=== PATIENT | female | born 1965 | race Caucasian/White ===

== ENCOUNTER → 2016-07-23 | Outpatient (CLI) | payer BC ==
--- NOTE | 2016-07-23 08:48 | US ---
EXAMINATION TYPE: US gallbladder DATE OF EXAM: 07/23/2016 8:22 AM COMPARISON: CT cap November 25, 2014. CLINICAL HISTORY: R10.9 ABD PAIN. Abd pain for weeks with N/V EXAM MEASUREMENTS: Liver Length: 13.6 cm Gallbladder Wall: 0.2 cm CBD: 0.7 cm Right Kidney: 9.4 x 4.2 x 4.3 cm Pancreas: wnl Liver: wnl Gallbladder: wnl Evidence for sonographic Choi's sign: no CBD: wnl Right Kidney: 1.3cm mixed superior pole cyst Technologist david 1.3 cm oval anechoic lesion felt to reflect a thin septated cyst or Bosniak type I I lesion upper pole level right kidney. Lesion not clearly seen on prior CT may be new. IMPRESSION: No gallstones or ultrasound evidence for acute cholecystitis.
--- NOTE | 2016-07-23 13:47 | XR ---
Abdomen HISTORY: Pain and constipation Frontal view of the abdomen on 2 images No comparisons Probable vascular calcifications are present within the pelvis, evidence of old granulomatous disease is suspected with left hilar calcifications. Lung bases are clear. No bowel obstruction or pneumoper itoneum is evident. There is mild spinal curvature, degenerative disc changes are present in the visu alized spine. IMPRESSION: No abnormality evident to account for patient's symptoms.
== END | disposition home or self-care (01) ==
LOC: RADUSWWP 08:01
PROVIDERS: ATTEND Family Medicine
DX: R10.9 Unspecified abdominal pain (principal); K59.00 Constipation, unspecified
CPT/HCPCS: 74000; 76705

== ENCOUNTER → 2016-08-20 | Outpatient (CLI) | payer BC ==
--- NOTE | 2016-08-20 10:58 | NM ---
EXAMINATION TYPE: NM hepatobiliary w EF DATE OF EXAM: 08/20/2016 9:17 AM COMPARISON: Ultrasound gallbladder 23 July 2016 HISTORY: Right upper quadrant pain TECHNIQUE: After the intravenous administration of 5.1 mCi Tc 99m Mebrofenin hepatobiliary scintigrap hy is performed. Immediate images post injection. FINDINGS: There is satisfactory initial accumulation of tracer by the liver. The gallbladder is visualized wit hin 20 minutes. The small bowel activity is noted within 10 minutes. At one hour 8 ounces of oral e nsure plus is given to mimic CCK and gallbladder ejection fraction is calculated at 84 %. Therefore t here is no scintigraphic evidence of cystic or common bile duct obstruction to suggest acute cholecys titis or gallbladder dyskinesia. IMPRESSION: Gallbladder ejection fraction 84%
== END | disposition home or self-care (01) ==
LOC: RADNMMAIN 07:08
PROVIDERS: ATTEND Family Medicine
DX: R10.11 Right upper quadrant pain (principal)
CPT/HCPCS: 78226; A9537

== ENCOUNTER → 2017-10-10 | Outpatient (CLI) | payer BC ==
[2017-10-10 11:55] LABS: Basophils # (A) 0.1 k/uL (0-0.2); Basophils % (A) 1 %; Eosinophils # (A) 0.1 k/uL (0-0.7); Eosinophils % (A) 1 %; HCT 43.8 % (34.0-46.0); HGB 13.8 gm/dL (11.4-16.0); Lymphocytes # (A) 1.7 k/uL (1.0-4.8); Lymphocytes % (A) 21 %; MCH 31.4 pg (25.0-35.0); MCHC 31.4 g/dL (31.0-37.0); MCV 100.2 fL (80.0-100.0); Mean Platelet Volume 7.1; Monocytes # (A) 0.4 k/uL (0-1.0); Monocytes % (A) 5 %; Neutrophils # (A) 5.9 k/uL (1.3-7.7); Neutrophils % (A) 70 %; Platelet Count 365 k/uL (150-450); RBC 4.38 m/uL (3.80-5.40); RDW 13.6 % (11.5-15.5); WBC 8.4 k/uL (3.8-10.6)
[2017-10-10 12:15] LABS: ALT 34 U/L (9-52); AST 24 U/L (14-36); Albumin 4.4 g/dL (3.5-5.0); Alkaline Phosphatase 99 U/L (38-126); Anion Gap 8 mmol/L; Blood Urea Nitrogen 15 mg/dL (7-17); Calcium 9.7 mg/dL (8.4-10.2); Carbon Dioxide 29 mmol/L (22-30); Chloride 103 mmol/L (98-107); Cholesterol 202 mg/dL (<200); Glucose 91 mg/dL (74-99); HDL Cholesterol 59 mg/dL (40-60); LDL Cholesterol,Calculated 128 mg/dL (0-99); Potassium 4.9 mmol/L (3.5-5.1); Sodium 140 mmol/L (137-145); Total Bilirubin 0.4 mg/dL (0.2-1.3); Triglycerides 73 mg/dL (<150)
[2017-10-10 12:30] LABS: T4, Free (Free Thyroxine) 0.84 ng/dL (0.78-2.19)
[2017-10-10 13:08] LABS: Erythrocyte Sedimentation Rate 10 mm/hr (0-20)
[2017-10-10 16:38] LABS: Rheumatoid Factor 7 IU/mL (0-15)
[2017-10-10 18:40] LABS: Hemoglobin A1C 5.1 % (4.0-6.0)
[2017-10-10 18:59] LABS: Hepatitis A Antibody IgM Non-Reactive (Non-Reactive); Hepatitis B Core IgM Non-Reactive (Non-Reactive)
[2017-10-11 09:44] LABS: HLA B27 NEGATIVE
== END | disposition home or self-care (01) ==
LOC: LABWHC1 11:26
PROVIDERS: ATTEND Family Medicine
DX: M19.90 Unspecified osteoarthritis, unspecified site (principal); M54.5 Low back pain; R55 Syncope and collapse; R94.5 Abnormal results of liver function studies
CPT/HCPCS: 36415; 80053; 80061; 80074; 83036; 84439; 84443; 85025; 85652; 86038; 86431; 86812

== ENCOUNTER → 2017-11-14 | Outpatient (CLI) | payer BC ==
--- NOTE | 2017-11-14 16:56 | BD ---
EXAMINATION TYPE: Axial Bone Density DATE OF EXAM: 11/14/2017 COMPARISON: 10.01.2010 CLINICAL HISTORY: 52 YR OLD FEMALE.....ICD-10 CODE: M1990 OSTEOARTHRITIS Height: 63.8 Weight: 120 FRAX RISK QUESTIONS: Family History (Parent hip fracture): YES 3. Menopause before 45: UNSURE, PARTIAL HYST AT 37, UNKNOWN HORMONE LEVELS Current Tobacco Use: YES RISK FACTORS HISTORY OF: Family History of Osteoporosis: YES, MOTHER AND GRANDMOTHER, WITH HIP FX Active: YES Diet low in dairy products/other sources of calcium: YES, A BIT LOW Postmenopausal woman: HYST 37 YRS OLD, PARTIAL MEDICATIONS: Additional Medications: XANAX AND MOTRIN 800 MG Additional History: ARTHRITIS, HYPOGLYCEMIA, PT LEGALLY BLIND EXAM MEASUREMENTS: Bone mineral densitometry was performed using the [employer] System. Bone mineral density as measured about the Lumbar spine is: ----- L1-L4(G/cm2): 1.486 T Score Values are as follows: ----- L1: 1.4 ----- L2: 2.5 ----- L3: 3.9 ----- L4: 2.2 ----- L1-L4: 2.5 Bone mineral density has: Increased 9.6% since study of: 10.01.2010 Bone mineral density about the R hip (g/cm2): 1.129 Bone mineral density about the L hip (g/cm2): 1.250 T Score values are as follows: -----R Neck: 0.9 -----L Neck: 1.6 -----R Total: 1.0 -----L Total: 1.9 Bone mineral density has: Decreased -2.9% since study of: 10.01.2010 FRAX%s: THERE IS A 6.1% CHANCE OF A MAJOR OSTEOPOROTIC FX AND A 0% FOR A HIP FX......PROBABILITY O F FX IN 10 YRS TIME IMPRESSION: Normal (Values between +1 and -1 indicate normal bone mass). Consider repeating this study in 5 year s or sooner if there is some new clinical indication. NOTE: T-SCORE=SD OF THE YOUNG ADULT MEAN.
--- NOTE | 2017-11-17 12:16 | MM ---
Reason for exam: screening (asymptomatic). Last mammogram was performed 2 years and 1 month ago. History: Benign US biopsy breast VAD LT of the left breast, August 08, 2014. Benign US left guided VAD of the left breast, August 12, 2008. Excisional biopsy of both breasts, March 2008. Physical Findings: A clinical breast exam by your physician is recommended on an annual basis and results should be correlated with mammographic findings. MG 3D Screening Mammo W/Cad Bilateral CC and MLO view(s) were taken. Technologist: RT Wendi (R)(M) Prior study comparison: October 05, 2015, bilateral MG diagnostic mammo w CAD ISABEL. August 01, 2014, bilateral MG diagnostic mammo w CAD ISABEL. The breast tissue is extremely dense which could obscure a lesion on mammography. No suspicious abnormality on the right breast. Left biopsy marker noted. A new lobulated medial 6mm asymmetry is seen at posterior depth. ASSESSMENT: Incomplete: need additional imaging evaluation, BI-RAD 0 RECOMMENDATION: Special view mammogram of the left breast. If lesion persists on supplemental views, image directed ultrasound is recommended. [facility] will attempt to contact patient to return for supplemental views and ultrasound if indicated.
== END | disposition home or self-care (01) ==
LOC: RADMAMWWP 07:19
PROVIDERS: ATTEND Family Medicine
DX: Z12.31 Encounter for screening mammogram for malignant neoplasm of breast (principal); R55 Syncope and collapse; M19.90 Unspecified osteoarthritis, unspecified site
CPT/HCPCS: 77063; 77067; 77080

== ENCOUNTER → 2017-12-01 | Outpatient (CLI) | payer BC ==
--- NOTE | 2017-12-01 10:08 | CT ---
EXAMINATION TYPE: CT brain wo con DATE OF EXAM: 12/01/2017 COMPARISON: 10/01/2010 INDICATION: Syncope DLP: 1112 mGycm, Automated exposure control for dose reduction was used. CONTRAST: None CT of the brain is performed utilizing 3 mm thick sections through the posterior fossa and 3 mm thick sections through the remaining calvarium. Study is performed within 24 hours of arrival to the hosp ital. No abnormal hyperdensity is present to suggest an acute intracranial hemorrhage. No mass lesion is evident. No acute infarcts are evident. Ventricles and sulci are appropriate for the patient age. Minimal air-fluid levels within the sphenoid sinuses. Correlate for acute sphenoid sinusitis. Remaini ng paranasal sinuses and mastoid air cells are clear. IMPRESSIONS: 1. No acute intracranial process. 2. Correlate for acute sphenoid sinusitis.
--- NOTE | 2017-12-01 12:40 | ECHOF ---
Referral Reason:R55 Syncope MEASUREMENTS -------- HEIGHT: 162.6 cm WEIGHT: 55.8 kg BP: IVSd: 0.9 cm (0.6 - 1.1) LVIDd: 3.6 cm (3.9 - 5.3) LVPWd: 0.9 cm (0.6 - 1.1) IVSs: 1.3 cm LVIDs: 2.1 cm LVPWs: 1.6 cm LAESV Index (A-L): 18.64 ml/m Ao Diam: 2.7 cm (2.0 - 3.7) AV Cusp: 1.6 cm (1.5 - 2.6) LA Diam: 2.8 cm (2.7 - 3.8) MV EXCURSION: 11.236 mm (> 18.000) MV EF SLOPE: 45 mm/s (70 - 150) EPSS: 0.4 cm MV E Jorge Luis: 0.87 m/s MV DecT: 249 ms MV A Jorge Luis: 0.89 m/s MV E/A Ratio: 0.98 RAP: 5.00 mmHg RVSP: 28.81 mmHg FINDINGS -------- Sinus rhythm. This was a technically good study. The left ventricular size is normal. Left ventricular wall thickness is normal. Overall left vent ricular systolic function is normal with, an EF between 55 - 60 %. The right ventricle is normal in size and function. The left atrium is normal in size. The right atrium is normal in size. The aortic valve is trileaflet, and appears structurally normal. No aortic stenosis or regurgitation. The mitral valve leaflets are mildly thickened. Mild mitral regurgitation is present. Mild tricuspid regurgitation present. There is no evidence of pulmonary hypertension. The right v entricular systolic pressure, as measured by Doppler, is 28.81mmHg. There is no pulmonic regurgitation present. The aortic root size is normal. Normal inferior vena cava with normal inspiratory collapse consistent with estimated right atrial pre ssure of 5 mmHg. There is no pericardial effusion. CONCLUSIONS -------- 1. Sinus rhythm. 2. This was a technically good study. 3. The left ventricular size is normal. 4. Left ventricular wall thickness is normal. 5. Overall left ventricular systolic function is normal with, an EF between 55 - 60 %. 6. The left atrium is normal in size. 7. The aortic valve is trileaflet, and appears structurally normal. No aortic stenosis or regurgitati on. 8. The mitral valve leaflets are mildly thickened. 9. Mild mitral regurgitation is present. 10. Mild tricuspid regurgitation present. 11. There is no evidence of pulmonary hypertension. 12. There is no pulmonic regurgitation present. 13. The aortic root size is normal. 14. Normal inferior vena cava with normal inspiratory collapse consistent with estimated right atrial pressure of 5 mmHg. 15. There is no pericardial effusion. DRIER TRANSFER CAR OPERATOR: Amanda Porter RDCS
--- NOTE | 2017-12-01 13:16 | EST ---
EXERCISE STRESS DATE OF SERVICE: 12/01/2017 AGE: 52 SEX: Female HT: 5'4" WT: 123 PROTOCOL: Dimas STAGE: III DURATION OF EXERCISE: 8 minutes 59 seconds HEART RATE REST: 78 BLOOD PRESSURE REST: 118/79 MAXIMUM HEART RATE ACHIEVED: 148 MAXIMUM BLOOD PRESSURE: 129/76 85% MPHR: 145 100% MPHR: 170 METS: 10.1 INDICATIONS: Syncope. CLINICAL INFORMATION: Baseline rhythm is sinus mechanism, rate of 78, normal axis and intervals with nonspecific ST-T wave changes. Baseline blood pressure 118/79 mmHg. Patient exercised on Dimas protocol for 8 minute 59 seconds reaching a peak rate 148 beats per minute which is equal to 87% maximum predicted heart rate. Peak blood pressure 129/76 mmHg. Test was terminated secondary to fatigue. There was not chest pain. Electrocardiograph monitoring revealed no evidence of diagnostic ischemic ST deviation. CONCLUSION: 1. Average exercise tolerance with no chest pain. 2. Nondiagnostic electrocardiograph stress testing secondary to baseline EKG abnormalities. 3. If clinically indicated, an imaging stress test will be helpful. MMODL / IJN: [id number] /
--- NOTE | 2017-12-01 13:38 | US ---
EXAMINATION TYPE: US carotid duplex BILAT DATE OF EXAM: 12/01/2017 COMPARISON: Previous dated 10/01/2010 CLINICAL HISTORY: NEAR SYNCOPE M19.90. EXAM MEASUREMENTS: RIGHT: Peak Systolic Velocity (PSV) cm/sec ----- Right CCA: 70.1 ----- Right ICA: 68.6 ----- Right ECA: 71.0 ICA/CCA ratio: 1.0 RIGHT: End Diastole cm/sec ----- Right CCA: 27.3 ----- Right ICA: 35.1 ----- Right ECA: 20.4 LEFT: Peak Systolic Velocity (PSV) cm/sec ----- Left CCA: 88.8 ----- Left ICA: 68.9 ----- Left ECA: 62.9 ICA/CCA ratio: 0.77 LEFT: End Diastole cm/sec ----- Left CCA: 31.8 ----- Left ICA: 33.0 ----- Left ECA: 9.5 VERTEBRALS (direction of flow): Right Vertebral: Antegrade Left Vertebral: Antegrade Rhythm: Normal Minimal plaque, no significant velocity elevations. Grayscale, color Doppler, spectral Doppler imaging performed of the carotid arteries, waveform analys is does not show significant stenosis of the proximal internal carotid arteries bilaterally by Dopple r criteria IMPRESSION: No hemodynamic significant stenosis of the proximal internal carotid arteries bilaterall y by Doppler criteria, an indirect measurement of carotid stenosis
== END ==
LOC: RADCTMAIN 08:59
PROVIDERS: ATTEND Family Medicine
DX: I08.1 Rheumatic disorders of both mitral and tricuspid valves (principal); R55 Syncope and collapse
CPT/HCPCS: 70450; 93017; 93306; 93880

== ENCOUNTER → 2017-12-05 | Outpatient (CLI) | payer BC ==
--- NOTE | 2017-12-05 11:34 | MM ---
Reason for exam: additional evaluation requested from abnormal screening. Last mammogram was performed 1 month ago. History: Patient is postmenopausal. Benign US biopsy breast VAD LT of the left breast, August 08, 2014. Benign US left guided VAD of the left breast, August 12, 2008. Excisional biopsy of both breasts, March 2008. Physical Findings: Nurse did not find any significant physical abnormalities on exam. MG Work Up Mamm w CAD LT CC and MLO view(s) were taken of the left breast. Technologist: Caridad Segura RT (R)(M) Prior study comparison: November 14, 2017, bilateral MG 3d screening mammo w/cad. October 05, 2015, bilateral MG diagnostic mammo w CAD ISABEL. Persistent nodule upper inner left breast posterior third position. These results were verbally communicated with the patient and result sheet given to the patient on 12/05/17. ASSESSMENT: Incomplete: need additional imaging evaluation, BI-RAD 0 RECOMMENDATION: Ultrasound of the left breast.
--- NOTE | 2017-12-05 11:36 | USB ---
Reason for exam: additional evaluation requested from abnormal screening. History: Patient is postmenopausal. Benign US biopsy breast VAD LT of the left breast, August 08, 2014. Benign US left guided VAD of the left breast, August 12, 2008. Excisional biopsy of both breasts, March 2008. US Breast Workup Limited LT Left limited breast ultrasound including focal area of concern, retroareolar and axilla demonstrates a 0.5 x 0.2 x 0.4cm oval, cystic lesion at 10 o'clock. These results were verbally communicated with the patient and result sheet given to the patient on 12/05/17. ASSESSMENT: Suspicious, BI-RAD 4 RECOMMENDATION: Localization and excision of the left breast. Called Dr. Knowles with mammographic findings and has scheduled an appointment for the patient for 12/18/17 at 11:[address] Cunningham. PRELIMINARY REPORT CALLED AND FAXED TO DR. CUNNINGHAM ON 12/05/17.
== END | disposition home or self-care (01) ==
LOC: RADMAMWWP 09:01
PROVIDERS: ATTEND Family Medicine
DX: R92.8 Other abnormal and inconclusive findings on diagnostic imaging of breast (principal)
CPT/HCPCS: 77065

== ENCOUNTER 2018-01-09 07:31 | Day surgery (SDC) | payer BC ==
[2018-01-06 12:31] VITALS: BMI 21.1
[~2018-01-09 07:31] MED LIST: HEPARIN SODIUM,PORCINE 5,000 UNIT/ML 1 ML VIAL SQ ONE; LACTATED RINGERS 1,000 ML IV SCH; LIDOCAINE 1% 20 ML VIAL (10MG/ML) FOR IV START INTRADERMA PRN; ONDANSETRON 4 MG/2 ML VIAL IVP ONE; ceFAZolin IN SWFI 2 GM/20 ML SYRINGE IVP ONE; fentaNYL (PF) 50 MCG/ML 2 ML AMP IV PRN
[2018-01-09] MEDS ORDERED: ONDANSETRON 4 MG/2 ML VIAL IVP ONE (07:56)
[2018-01-09 07:57] LABS: Glucose,Whole Blood 92 mg/dL (75-99)
[2018-01-09] MEDS ORDERED: SODIUM BICARB 4% 5 ML VIAL (0.48 MEQ/ML) MISCELLANE ONE (09:50)
[2018-01-09] MEDS ORDERED: LIDOCAINE 1% INJ 10MG/ML (20 ML MDV) SQ ONE ×2 (09:50→10:50)
[2018-01-09] MEDS ORDERED: LIDOCAINE 1% INJ 10MG/ML (20 ML MDV) ONE (11:20)
[2018-01-09] MEDS ORDERED: PROPOFOL 10 MG/ML 20 ML VIAL IV ONE (11:20)
[2018-01-09] MEDS ORDERED: HYDROmorphone (PF) 1 MG/ML ONE (11:20)
[2018-01-09] MEDS ORDERED: ONDANSETRON 4 MG/2 ML VIAL ONE (11:20)
[2018-01-09] MEDS ORDERED: MIDAZOLAM 2 MG/2 ML VIAL ONE (11:20)
[2018-01-09] MEDS ORDERED: BUPIVACAIN-EPI 0.25%-1:200,000 30 ML VIAL SQ ONE ×2 (11:41→11:57)
[2018-01-09] MEDS ORDERED: NALOXONE 0.4 MG/ML 1 ML VIAL IV PRN (12:14)
[2018-01-09 12:20] VITALS: TEMP 98
--- NOTE | 2018-01-09 12:25 | P.OP ---
Date of Procedure: 01/09/18 Procedure(s) Performed: PREOPERATIVE DIAGNOSIS: Abnormal left mammogram POSTOPERATIVE DIAGNOSIS: Same PROCEDURE: Left Breast wire localization biopsy SURGEON: Hemal EBL: Minimal ANESTHESIA: Sedation plus local COMPLICATIONS: None OPERATIVE PROCEDURE: Patient was placed on the operating room table in the supine position. The patient's breast was prepped and draped in usual sterile fashion. A curvilinear incision was made adjacent to the areola at 12:00. The subcutaneous breast tissue was dissected from the 12:00 location up to the upper aspect of the breast where the 2 wires were entering into the breast tissues. I followed the tip of the wires to the deeper aspect of the breast tissues along the chest wall and the breast tissue around the tip of both wires was fully excised. Small areas of bleeding were controlled using the cautery. I did place 2 ligaclips for future reference that that was the location where the biopsy was obtained from. The subcutaneous tissues were inspected. No bleeding was seen. The subcutaneous tissues were closed using 3-0 Vicryl sutures. The skin was closed using a running 4-0 Monocryl stitch. Dermabond was applied. DISPOSITION: Stable to recovery room
[2018-01-09 13:54] VITALS: BP 125/74; PULSE 60; RESP 16
--- NOTE | 2018-01-11 12:19 | MM ---
EXAMINATION TYPE: MG discontinued needle loc LT EXAMINATION TYPE: US breast localization LT DATE OF EXAM: 01/09/2018 COMPARISON: Ultrasound 12/05/2017, mammogram 01/09/2018,, 12/05/2017 CLINICAL HISTORY: R92.8 ABNORMAL MAMMOGRAM. Procedure: The patient was scheduled and prepped for a wire localization under mammography guidance f or lesion at the approximate 10:00 position of the right breast. Procedure was explained to the patient, the risks complications benefits, all questions were answered . Informed consent was obtained. Timeout was performed. The skin was cleansed and anesthetized with 1% lidocaine with sodium bicarbonate standard manner. [facility] guidance was utilized for needle placement. Despite several attempts difficulty with positi oning good confirmation of needle localization could not be performed by mammography. The procedure w as converted to ultrasound guidance. The procedure was discussed with the patient including including why this was converted, and the risk of potentially nonlocalizing the mammographic abnormality by ultrasound. A new timeout was performed. The patient was scanned with ultrasound lesion at the 10:00 position was again identified. The skin a nd deeper breast tissue was anesthetized with 1% lidocaine with sodium bicarbonate. Under ultrasound guidance a 5 cm needle was placed into the lesion. The wire was placed through the n eedle and the needle withdrawn. The wire tip appear to be within the lesion. With concern for the pur maricarmen, a second wire, being 7 cm, was then placed through the lesion with the wire deployment tip out side the far side of the lesion. The wires were parallel. Post procedure mammogram was obtained demonstrating the wires were within the lesion localized by ult rasound on mammography images at the mammographic abnormality. Images were labeled. The patient was t ransferred to surgery. Preliminary report was called to the surgeon by Dr. Dacosta. The wire position ing and the use of the 2 wires was discussed. Specimen: Ultrasound specimen was performed. Wires are identified. Lesion is not identified by ultras ound. Mammographic specimen was also obtained. The wires are within the specimen. Discrete lesion however i s not clearly identified by mammography specimen. Report was called to the surgeon by Dr. Dacosta at the time of specimen acquisition. This was discussed with the surgeon. Additional evaluation will be made at the time of pathology report. IMPRESSIONS: 1. Successful wire localization of the lesion in the 10:00 posterior position right breast. Localizat ion was by ultrasound with confirmation by mammography. Recommendations: 1. Recommendations are pending pathology results. Close correlation between pathology and radiology i s recommended.
== END 2018-01-09 14:01 | disposition home or self-care (01) ==
LOC: OR 07:31
PROVIDERS: ATTEND Surgery
DX: N60.32 Fibrosclerosis of left breast (principal); N64.1 Fat necrosis of breast; R92.8 Other abnormal and inconclusive findings on diagnostic imaging of breast; J45.909 Unspecified asthma, uncomplicated; F41.9 Anxiety disorder, unspecified; F17.200 Nicotine dependence, unspecified, uncomplicated; H54.8 Legal blindness, as defined in USA; Z79.1 Long term (current) use of non-steroidal anti-inflammatories (NSAID); Z79.899 Other long term (current) drug therapy; Z88.5 Allergy status to narcotic agent
CPT/HCPCS: 19101; 88305; 76098; 19285; J2250; J1644; J2405; J2001; J1170; J2704

== ENCOUNTER → 2019-11-11 | Outpatient (CLI) | payer BC ==
--- NOTE | 2019-11-12 09:35 | MM ---
Reason for exam: additional evaluation requested from prior study. Last mammogram was performed 1 year and 11 months ago. History: Patient is postmenopausal. Benign US breast localization LT, January 09, 2018. MG discontinued needle loc LT of the left breast, January 09, 2018. Benign US biopsy breast VAD LT of the left breast, August 08, 2014. Benign US left guided VAD of the left breast, August 12, 2008. Excisional biopsy of both breasts, March 2008. Physical Findings: Nurse did not find any significant physical abnormalities on exam. MG 3D Diag Mammo W/Cad ISABEL Bilateral CC and MLO view(s) were taken. Prior study comparison: December 05, 2017, left breast MG work up mamm w CAD LT. November 14, 2017, bilateral MG 3d screening mammo w/cad. The breast tissue is heterogeneously dense. This may lower the sensitivity of mammography. No significant new findings when compared with previous films. These results were verbally communicated with the patient and result sheet given to the patient on 11/11/19. ASSESSMENT: Benign, BI-RAD 2 RECOMMENDATION: Routine screening mammogram of both breasts in 1 year. Manage patient on a clinical basis.
--- NOTE | 2019-11-12 09:37 | USB ---
Reason for exam: additional evaluation requested from prior study. History: Patient is postmenopausal. Benign US breast localization LT, January 09, 2018. MG discontinued needle loc LT of the left breast, January 09, 2018. Benign US biopsy breast VAD LT of the left breast, August 08, 2014. Benign US left guided VAD of the left breast, August 12, 2008. Excisional biopsy of both breasts, March 2008. US Breast LT Technologist: Noemi Galeana Left complete breast ultrasound includes all four quadrants, the retroareolar region and axilla. Finding demonstrates a 0.5 x 0.5 x 0.3cm circular, cystic lesion at 1 o'clock, a 0.3 x 0.3 x 0.2cm circular lesion too small to characterize at 10 o'clock and a 0.3 x 0.4 x 0.3cm lesion at 3 o'clock. These results were verbally communicated with the patient and result sheet given to the patient on 11/11/19. ASSESSMENT: Probably benign, BI-RAD 3 RECOMMENDATION: Ultrasound of the left breast in 6 months.
== END | disposition home or self-care (01) ==
LOC: RADMAMWWP 06:54
PROVIDERS: ATTEND Surgery
DX: R92.8 Other abnormal and inconclusive findings on diagnostic imaging of breast (principal); N63.20 Unspecified lump in the left breast, unspecified quadrant
CPT/HCPCS: 77062; 77066

== ENCOUNTER → 2020-01-13 | Outpatient (CLI) | payer BC ==
--- NOTE | 2020-01-13 19:11 | CT ---
EXAMINATION TYPE: CT brain wo/w con DATE OF EXAM: 01/13/2020 COMPARISON: 12/01/2017 INDICATION: Headache, amnesia, syncopal episodes DLP: 2137 mGycm, Automated exposure control for dose reduction was used. CONTRAST: None CT of the brain is performed utilizing 3 mm thick sections through the posterior fossa and 3 mm thick sections through the remaining calvarium. Study is performed within 24 hours of arrival to the hosp ital. No abnormal hyperdensity is present to suggest an acute intracranial hemorrhage. No mass lesion is evident. No acute infarcts are evident. Ventricles and sulci are appropriate for the patient age. Paranasal sinuses and mastoid air cells within the [id number] are clear. No abnormal enhancement is evident. The globes are symmetrical. Intraconal and extraconal fat is visualized appears unremarkable pituitar y is normal. No optic chiasm effacement is evident. MRI could be performed if closer evaluation of th e orbits and orbital tracts would be of use. IMPRESSIONS: 1. Normal pre and postcontrast CT brain
== END | disposition home or self-care (01) ==
LOC: RADCTMAIN 08:34
PROVIDERS: ATTEND Family Medicine
DX: R41.3 Other amnesia (principal)
CPT/HCPCS: 70470; Q9967

== ENCOUNTER → 2020-04-21 | Outpatient (CLI) | payer BC ==
--- NOTE | 2020-04-21 14:44 | CT ---
EXAMINATION TYPE: CT abdomen pelvis w con DATE OF EXAM: 04/21/2020 HISTORY: Abdominal pain and constipation x2-[address] DLP: 443.5mGycm Automated Exposure Control for Dose Reduction was Utilized. CONTRAST: CT scan of the abdomen and pelvis is performed with oral and with IV Contrast, patient injected with 100 mL of Isovue 300. COMPARISON: November 25, 2014 CT FINDINGS: LUNG BASES: No significant abnormality is appreciated. LIVER/GB: No significant abnormality is appreciated. PANCREAS: No significant abnormality is seen. SPLEEN: No significant abnormality is seen. ADRENALS: No significant abnormality is seen. KIDNEYS: There are 2 subcentimeter thin-walled cyst in the upper pole right kidney. Symmetric cortica l medullary uptake and excretion without hydronephrosis seen bilaterally. BOWEL: Oral contrast reaches level of the left colon. No suspicious small or large bowel dilatation. UTERUS/ADNEXA: Uterus is surgically absent. Occasional scattered bilateral tiny pelvic phlebolith. LYMPH NODES: No greater than 1cm abdominal or pelvic lymph nodes are appreciated. OSSEOUS STRUCTURES: Moderate to severe disc space narrowing with endplate sclerosis L2-L3 level is pr esent. Mild to moderate disc space narrowing affecting the phenomenon L4-L5 level. OTHER: No significant additional abnormality is seen. IMPRESSION: No bowel obstruction. No acute findings are evident.
== END | disposition home or self-care (01) ==
LOC: RADCTMAIN 12:13
PROVIDERS: ATTEND Family Medicine
DX: R10.9 Unspecified abdominal pain (principal)
CPT/HCPCS: 74177; Q9967

== ENCOUNTER → 2020-05-02 | Outpatient (CLI) | payer BC ==
--- NOTE | 2020-05-02 11:13 | USB ---
Reason for exam: follow-up at short interval from prior study. History: Patient is postmenopausal. Benign US breast localization LT, January 09, 2018. MG discontinued needle loc LT of the left breast, January 09, 2018. Benign US biopsy breast VAD LT of the left breast, August 08, 2014. Benign US left guided VAD of the left breast, August 12, 2008. Excisional biopsy of both breasts, March 2008. Physical Findings: Nurse did not find any significant physical abnormalities on exam. US Breast LT Technologist: Noemi Galeana Left complete breast ultrasound includes all four quadrants, the retroareolar region and axilla. Finding demonstrates a 0.3 x 0.3 x 0.2cm lesion too small to characterize at 1 o'clock, a 0.4 x 0.4 x 0.3cm cystic lesion at 10 o'clock and a 0.8 x 0.8 x 0.6cm hypoechoic lesion at 12 o'clock, clip visualized. These results were verbally communicated with the patient and result sheet given to the patient on 05/02/20. ASSESSMENT: Benign, BI-RAD 2 RECOMMENDATION: Routine screening mammogram of both breasts in 6 months. Back on schedule.
--- NOTE | 2020-05-02 11:43 | XR ---
EXAM TYPE: LUMBAR SPINE X RAY SERIES COMPARISON: NONE HISTORY: Pain TECHNIQUE: 4 views are submitted. FINDINGS: Alignment is anatomic. The pedicles are intact. The transverse processes are intact. There is ely re degenerative change L2-L3 and L4-L5 with hypertrophic spurring. Multilevel facet arthropathy. No c ompression deformities seen. SI joints symmetric. Vascular calcifications noted. IMPRESSION: 1. Multilevel degenerative change with facet arthropathy.
== END | disposition home or self-care (01) ==
LOC: RADUSWWP 09:18
PROVIDERS: ATTEND Family Medicine
DX: M47.816 Spondylosis without myelopathy or radiculopathy, lumbar region (principal); R92.8 Other abnormal and inconclusive findings on diagnostic imaging of breast
CPT/HCPCS: 72110

== ENCOUNTER → 2021-04-05 | Outpatient (CLI) | payer BC ==
--- NOTE | 2021-04-05 11:10 | XR ---
EXAMINATION TYPE: XR cervical spine comp DATE OF EXAM: 04/05/2021 COMPARISON: NONE HISTORY: Pain TECHNIQUE: Four views are submitted. FINDINGS: The odontoid is intact. There are no compression deformities. The prevertebral soft tissue structur es are within normal limits. Multilevel degenerative disc disease with severe degenerative changes C 6-C7. Anterior hypertrophic spurring. Neural foramina appear to be patent. IMPRESSION: 1. Multilevel degenerative disc disease with severe changes at C6-C7. Recommend follow-up MRI.
--- NOTE | 2021-04-05 11:13 | XR ---
EXAMINATION TYPE: XR femur LT DATE OF EXAM: 04/05/2021 CLINICAL HISTORY: Pain TECHNIQUE: Two views of the left femur are obtained. COMPARISON: None FINDINGS: There is no acute fracture or dislocation seen in the left femur. The left hip and knee j oints appear within normal limits. The overlying soft tissue appears unremarkable. IMPRESSION: There is no acute fracture or dislocation in the left femur.
--- NOTE | 2021-04-05 11:13 | XR ---
EXAMINATION TYPE: XR elbow complete LT DATE OF EXAM: 04/05/2021 COMPARISON: NONE HISTORY: Pain FINDINGS: Three views of the elbow demonstrate no pathologic joint effusion. The osseous structures are intact . There is no acute fracture or dislocation. IMPRESSION: 1. No acute fracture or dislocation. If symptoms persist follow-up study in 7 to 10 days could be ob tained.
--- NOTE | 2021-04-05 11:15 | XR ---
EXAMINATION TYPE: XR shoulder complete BILAT DATE OF EXAM: 04/05/2021 COMPARISON: NONE HISTORY: Pain TECHNIQUE: Three views are submitted. FINDINGS: The osseous structures are intact. There is no acute fracture or dislocation. There is a moderate AC joint arthropathy. Calcifications in the left hilum are noted. Calcified granulomas in the right christian g. IMPRESSION: 1. Moderate bilateral AC joint arthropathy.
--- NOTE | 2021-04-05 11:31 | XR ---
EXAM TYPE: LUMBAR SPINE X RAY SERIES COMPARISON: NONE HISTORY: Pain TECHNIQUE: 3 views are submitted. FINDINGS: Alignment is anatomic. The pedicles are intact. The transverse processes are intact. There is mult ilevel hypertrophic and degenerative changes. Severe degenerative disc disease L2-3, L4-5 and L5-S1 w ith grade 1 anterolisthesis L5 on S1. Severe facet arthropathy most marked lower lumbar spine. No com pression deformities. Vascular calcifications noted. IMPRESSION: 1. Severe multilevel degenerative disc disease and facet arthropathy with grade 1 anterolisthesis L5 on S1. Neural foraminal encroachment is suspected recommend follow-up MRI.
== END | disposition home or self-care (01) ==
LOC: RADXRMAIN 08:59
PROVIDERS: ATTEND Family Medicine
DX: M50.323 Other cervical disc degeneration at C6-C7 level (principal); M51.37 Other intervertebral disc degeneration, lumbosacral region; M43.17 Spondylolisthesis, lumbosacral region; M47.896 Other spondylosis, lumbar region; M12.812 Other specific arthropathies, not elsewhere classified, left shoulder; M25.552 Pain in left hip; M25.522 Pain in left elbow; R10.32 Left lower quadrant pain; R10.12 Left upper quadrant pain
CPT/HCPCS: 72050; 72100

== ENCOUNTER → 2021-08-13 | Outpatient (CLI) | payer BC ==
--- NOTE | 2021-08-14 02:57 | MR ---
EXAMINATION TYPE: MR daleine/lspine wo con DATE OF EXAM: 08/13/2021 COMPARISON: None HISTORY: Neck and lower back pain, headaches, BUE/LLE radiculopathy. Multiplanar multiecho imaging of the cervical spine and lumbar spine without contrast. Cervical vertebra show fairly normal alignment. Disc spaces show slight narrowing at C5-6 and C6-7. N o cervical disc herniation. Minimal posterior disc bulging seen at C5-6 and C6-7. There is developmen tally adequate spinal canal. No spinal stenosis. Canal measures 10.5 mm at C5-6 which is the narrowes t point. Cervical spinal cord has normal signal pattern. No edema. Brainstem appears intact. There is no cervical paraspinal mass. IMPRESSION: Minor degenerative disc changes at C5-6 and C6-7. No spinal stenosis. No fracture. Minimal disc bulgi ng at C5-6 and C6-7. Lumbar spine. Lumbar vertebrae have normal alignment. There is degenerative disc space narrowing at L2-3 and L4-5. There is small posterior disc bulging at L2-3 and L4-5. There is developmentally adequate spinal thierry l. No spinal stenosis. The neural foramina are fairly well maintained. No spinal stenosis. No paraspi nal mass. No compression fracture. There is cyst at the S2 level. IMPRESSION: Degenerative disc space narrowing as above L2-3 and L4-5. No spinal stenosis. No fracture. Nonexpansi le sacral cyst at S2 level. Minimal posterior disc bulging at L2-3 and L4-5.
== END | disposition home or self-care (01) ==
LOC: RADMRIMAIN 18:08
PROVIDERS: ATTEND Family Medicine
DX: M50.123 Cervical disc disorder at C6-C7 level with radiculopathy (principal); M51.16 Intervertebral disc disorders with radiculopathy, lumbar region; M85.68 Other cyst of bone, other site
CPT/HCPCS: 72141; 72148

== ENCOUNTER → 2022-01-08 | Outpatient (CLI) | payer BC ==
[2022-01-08 14:30] LABS: Basophils # (A) 0.03 X 10*3/uL (0.00-0.10); Basophils % (A) 0.4 %; Eosinophils # (A) 0.18 X 10*3/uL (0.04-0.35); Eosinophils % (A) 2.5 %; HCT 39.7 % (37.2-46.3); HGB 13.2 g/dL (12.0-15.0); Immature Grans, Automated 0.3 %; Lymphocytes # (A) 1.98 X 10*3/uL (0.90-5.00); Lymphocytes % (A) 27.8 %; MCH 31.7 pg (27.0-32.0); MCHC 33.2 g/dL (32.0-37.0); MCV 95.2 fL (80.0-97.0); Mean Platelet Volume 10.6 fL (9.5-12.2); Monocytes # (A) 0.55 X 10*3/uL (0.20-1.00); Monocytes % (A) 7.7 %; NRBC Per 100 WBC 0 /100 WBCS (0.0-0.0); Neutrophils # (A) 4.35 X 10*3/uL (1.80-7.70); Neutrophils % (A) 61.3 %; Platelet Count 317 X 10*3/uL (140-440); RBC 4.17 X 10*6/uL (4.10-5.20); RDW 13.1 % (11.5-14.5); WBC 7.11 X 10*3/uL (4.50-10.00)
[2022-01-08 14:40] LABS: Protein, Total 6.3 g/dL (6.2-8.2)
[2022-01-08 15:24] LABS: ALT 20 U/L (8-44); AST 22 U/L (13-35); African American GFR (CKD) 106.6 (60.0-200.0); Albumin 4.3 g/dL (3.8-4.9); Alkaline Phosphatase 142 U/L (41-126); BUN/Creat Ratio 26.39 Ratio (12.00-20.00); Blood Urea Nitrogen 19.5 mg/dL (9.0-27.0); Calcium 9.7 mg/dL (8.7-10.3); Carbon Dioxide 28.3 mmol/L (20.0-27.5); Chloride 101 mmol/L (96-109); Chol/HDL Ratio 3.99 Ratio; Creatine Kinase 81 U/L (26-186); Glucose 91 mg/dL (70-110); LDL Cholesterol,Calculated 135.5 mg/dL (0.0-131.0); Potassium 4.6 mmol/L (3.5-5.5); Sodium 139 mmol/L (135-145); Total Bilirubin <0.15 mg/dL (0.30-1.20); Total Protein 6.3 g/dL (6.2-8.2)
[2022-01-08 16:04] LABS: Erythrocyte Sedimentation Rate 8 mm/Hr (0-30)
[2022-01-08 17:38] LABS: Anti-DNA, DS unit <1.0 IU/mL; DNA Double-Stranded NEGATIVE (NEGATIVE)
[2022-01-08 20:26] LABS: Immunoglobulin M 88.2 mg/dL (40.0-280.0)
[2022-01-09 15:05] LABS: Lyme IgG/IgM 0.04 Index
[2022-01-11 14:11] LABS: Albumin 3.93 g/dL (3.80-4.90); Gamma Globulin 0.66 g/dL (0.70-1.50)
== END | disposition home or self-care (01) ==
LOC: LABWHC1 10:26
PROVIDERS: ATTEND Psychiatry & Neurology Neurology
DX: M79.10 Myalgia, unspecified site (principal); M25.50 Pain in unspecified joint; G62.9 Polyneuropathy, unspecified; R20.2 Paresthesia of skin; R20.0 Anesthesia of skin; R51.9 Headache, unspecified
CPT/HCPCS: 36415; 80053; 80061; 82550; 82607; 82784; 82785; 83036; 84165; 84439; 84443; 85025; 85652; 86038; 86225; 86235; 86618

== ENCOUNTER → 2022-03-26 | Outpatient (CLI) | payer BC ==
--- NOTE | 2022-03-26 09:36 | BD ---
EXAMINATION TYPE: Axial Bone Density DATE OF EXAM: 03/26/2022 COMPARISON: 11/14/2017 CLINICAL HISTORY: 57 years year old Female. ICD-10 CODE: Z78.0 POST MENOPAUSAL W/O HRT Height: 64" Weight: 132.1 FRAX RISK QUESTIONS: Alcohol (3 or more units per day): NO Family History (Parent hip fracture): NO Glucocorticoids (More than 3mos): NO (Ex: prednisone, prednisolone, methylprednisolone, dexamethasone, and hydrocortisone). History of Fracture in Adulthood: YES, LEFT THUMB Secondary Osteoporosis: 1. Type 1 Diabetes: NO 2. Hyperthyroidism: NO 3. Menopause before 45: YES 4. Malnutrition: NO 5. Chronic liver disease: NO Rheumatoid Arthritis: NO Current Tobacco Use: YES RISK FACTORS HISTORY OF: Hip Fracture (Right/Left): NO Spine Fracture: NO History of Wrist Fracture: NO Surgery to Spine/Hip(right/left)/Wrist (right/left): NO Family History of Osteoporosis: YES, MOTHER AND MATERNAL GRANDMOTHER Active: YES Diet low in dairy products/other sources of calcium: YES Postmenopausal woman: YES Lost more than 2 inches in height since high school: NO Frequent falls: YES, PATIENT HAS LOSS OF VISION Poor Health: FAIR Hyperparathyroidism: NO Adrenal Insufficiency: NO MEDICATIONS: Additional Medications: XANAX NEEDED, VIT D3, MANUEL, VITAMIN C Additional History: LOSS OF VISION EXAM MEASUREMENTS: Bone mineral densitometry was performed using the [employer] System. Bone mineral density as measured about the Lumbar spine is: ----- L1-L4(G/cm2): 1.507 T Score Values are as follows: ----- L1: 1.9 ----- L2: 2.2 ----- L3: 3.8 ----- L4: 2.8 ----- L1-L4: 2.7 Bone mineral density has: INCREASED 0.9% since study of: 11/14/2017 Bone mineral density about the R hip (g/cm2): 1.157 Bone mineral density about the L hip (g/cm2): 1.213 T Score values are as follows: -----R Neck: 0.9 -----L Neck: 1.3 -----R Total: 0.3 -----L Total: 1.1 Bone mineral density has: DECREASE -7.8% since study of: 11/14/2017 FRAX%s: The graph provided illustrates a 4.2% chance for a major osteoporotic fx and a 0.1% chance fo r the hips probability for fx in 10 years time. IMPRESSION: Normal (Values between +1 and -1 indicate normal bone mass). Consider repeating this study in 5 year s or sooner if there is some new clinical indication. NOTE: T-SCORE=SD OF THE YOUNG ADULT MEAN.
--- NOTE | 2022-03-27 10:19 | MM ---
Reason for Exam: Screening (asymptomatic). Last mammogram was performed 2 year(s) and 5 month(s) ago. Patient History: Menarche at age 18. First Full-Term at age 27. Hysterectomy at age 37. Postmenopausal. 03/2008, Bilateral Excisional Biopsy. Benign Core Biopsy. 08/08/2014, Benign Core Biopsy on the left side. 08/12/2008, Benign Core Biopsy on the left side. 01/09/2018, MG discontinued needle loc LT on the left side. Risk Values: Kimmy 5 year model risk: 1.8%. NCI Lifetime model risk: 12.2%. Prior Study Comparison: 07/22/2008 Bilateral Diagnostic Ultrasound, [facility]. 04/30/2012 Bilateral Screening Mammogram, [facility]. 08/01/2014 Bilateral Diagnostic Mammogram, [facility]. 08/01/2014 Bilateral Diagnostic Ultrasound, [facility] 10/05/2015 Bilateral Diagnostic Mammogram, [facility]. 10/05/2015 Bilateral Diagnostic Ultrasound, [facility]. 11/14/2017 Bilateral Screening Mammogram, [facility]. 12/05/2017 Left Diagnostic Mammogram, [facility]. 12/05/2017 Left Diagnostic Ultrasound, [facility]. 11/11/2019 Bilateral Diagnostic Mammogram, [facility]. 11/11/2019 Left Diagnostic Ultrasound, [facility]. 05/02/2020 Left Diagnostic Ultrasound, [facility]. Tissue Density: The breast tissue is heterogeneously dense. This may lower the sensitivity of mammography. Findings: Analyzed By CAD. There are 2 biopsy clips in the left breast again seen. There are stable surgical clips posteriorly in the left breast redemonstrated. There is no suspicious new group of microcalcifications or new suspicious mass in either breast. Overall Assessment: Benign, BI-RAD 2 Management: Screening Mammogram of both breasts in 1 year. A clinical breast exam by your physician is recommended on an annual basis and results should be correlated with mammographic findings. Electronically signed and approved by: Rio Martinez M.D.
== END | disposition home or self-care (01) ==
LOC: RADMAMWWP 07:43
PROVIDERS: ATTEND Family Medicine
DX: Z12.31 Encounter for screening mammogram for malignant neoplasm of breast (principal); Z78.0 Asymptomatic menopausal state
CPT/HCPCS: 77063; 77067; 77080

== ENCOUNTER → 2022-08-20 | Outpatient (CLI) | payer BC ==
--- NOTE | 2022-09-13 08:29 | EM ---
14 day event monitor shows sinus mechanism Sinus tachycardia Several brief runs of nonsustained atrial tachycardia No sustained arrhythmias No bradycardia with MTDD
== END | disposition home or self-care (01) ==
LOC: RADECHMAIN 11:11
PROVIDERS: ATTEND Family Medicine
DX: I47.1 Supraventricular tachycardia (principal); R00.2 Palpitations
CPT/HCPCS: 93270